=== PATIENT | female | born 1985 | race Caucasian/White ===

== ENCOUNTER 2022-09-06 10:08 | Outpatient (CLI) | payer OTHER | END 2022-09-06 15:16 | disposition home or self-care (01) | LOC: LAB 10:08 | PROVIDERS: ATTEND Obstetrics & Gynecology | DX: Z00.00 Encounter for general adult medical examination without abnormal findings (principal); I10 Essential (primary) hypertension; E03.9 Hypothyroidism, unspecified; E78.00 Pure hypercholesterolemia, unspecified; N39.0 Urinary tract infection, site not specified; Z11.4 Encounter for screening for human immunodeficiency virus [HIV]; Z12.11 Encounter for screening for malignant neoplasm of colon; E55.9 Vitamin D deficiency, unspecified; Z21 Asymptomatic human immunodeficiency virus [HIV] infection status; R79.9 Abnormal finding of blood chemistry, unspecified; R79.89 Other specified abnormal findings of blood chemistry ==

== ENCOUNTER 2022-09-06 10:47 | Outpatient (CLI) | payer OTHER | END 2022-09-06 10:52 | disposition home or self-care (01) | LOC: MAMO-SONO 10:47 | PROVIDERS: ATTEND Obstetrics & Gynecology | DX: N63.0 Unspecified lump in unspecified breast (principal); N64.59 Other signs and symptoms in breast; N64.9 Disorder of breast, unspecified ==

== ENCOUNTER 2024-09-05 11:13 | Outpatient (CLI) | payer OTHER ==
[2024-09-05 12:00] LABS: HEMOGLOBIN 12.9 g/dL (12.0-15.00); MEAN CELL VOLUME 80.8 fL (80.00-100.00); MEAN CORPUSCULAR HEMOGLOBIN 26.7 pg (27.00-32.0); MEAN CORPUSCULAR HGB CONC 33.1 g/dl (32.0-36.0); PLATELET COUNT 205 K/uL (150-450); RED BLOOD COUNT 4.82 M/uL (4.00-6.00); RED CELL DISTRIBUTION WIDTH 15.5 % (11.5-14.5)
[2024-09-05 12:03] LABS: URINE BACTERIA 887.3 uL (0.0-1933); URINE EPITHELIAL CELLS 12.3 uL (0.0-38.8); URINE RBC 9.4 uL (0.0-20.8); URINE WBC 30.8 uL (0.0-23.2)
[2024-09-05 12:06] LABS: URINE APPEARANCE Clear; URINE BILIRRUBIN Negative (NEGATIVE); URINE BLOOD Negative; URINE COLOR Yellow; URINE GLUCOSE Negative (NEGATIVE); URINE KETONE Negative (NEGATIVE); URINE LEUKOCYTE Negative; URINE NITRATE Negative; URINE PROTEIN Negative (NEGATIVE); URINE UROBILINOGEN 0.2 E.U./dl
[2024-09-05 12:46] LABS: ALBUMIN 3.5 gm/dL (3.4-5.0); BILIRUBIN TOTAL 0.79 mg/dL (0.3-1.2); CHOL HDL RATIO 3.4 (0-5.0); CREATININE SERUM 0.75 mg/dL (0.55-1.02); GFR 86.48; GLOBULINA 3.8 G/DL (2.4-3.5); POTASSIUM 4.24 mEq/L (3.5-5.1); TOTAL PROTEIN 7.3 gm/dL (6.4-8.2); TSH 1.65 uIU/mL (0.358-3.74)
[2024-09-05 14:03] LABS: T4 FREE 1.2 NG/ML (0.76-1.46)
== END 2024-09-05 11:15 | disposition home or self-care (01) ==
LOC: LAB 11:13
PROVIDERS: ATTEND Obstetrics & Gynecology
DX: E03.9 Hypothyroidism, unspecified (principal); I10 Essential (primary) hypertension; Z00.00 Encounter for general adult medical examination without abnormal findings; N39.0 Urinary tract infection, site not specified; Z11.4 Encounter for screening for human immunodeficiency virus [HIV]; Z12.11 Encounter for screening for malignant neoplasm of colon; E55.9 Vitamin D deficiency, unspecified; R79.9 Abnormal finding of blood chemistry, unspecified; R79.89 Other specified abnormal findings of blood chemistry

== ENCOUNTER → 2024-09-05 | Outpatient (CLI) | payer OTHER | END | disposition home or self-care (01) | LOC: MAMO-SONO 12:08 | PROVIDERS: ATTEND Obstetrics & Gynecology | DX: N94.0 Mittelschmerz (principal); R10.2 Pelvic and perineal pain; N94.89 Other specified conditions associated with female genital organs and menstrual cycle; N63 Unspecified lump in breast; N64.59 Other signs and symptoms in breast; N64.9 Disorder of breast, unspecified ==

== ENCOUNTER 2024-12-09 20:25 | Emergency (ER) | payer OTHER ==
[~2024-12-09] VITALS: Ht 177.8 cm; Wt 160.6 kg
== END 2024-12-09 22:29 | disposition home or self-care (01) ==
LOC: ER 20:31
DX: K59.01 Slow transit constipation (principal)

== ENCOUNTER 2024-12-17 16:04 | Inpatient (IN) | payer OTHER ==
[~2024-12-17] VITALS: Ht 177.8 cm; Wt 160.6 kg
--- NOTE | 2024-12-17 16:55 | NUR ---
PTE ALERTA Y ORIENTADA X3 VEBALIZA TENER DOLOR ABDOMINAL DESDE HACE 2 SEMANAS SE LE STEVAN S/V Y SE UBICA.
[2024-12-17] MEDS ORDERED: KETOROLAC TROMETHAMINE 60 MG VIAL IM ONE (19:45)
[2024-12-17 19:46] LABS: BASO % 0.3 % (0.1-1.2); EOS # 0.03 (0.04-0.54); EOS % 0.2 % (0.7-7.0); LYMPH # 1.10 (1.18-3.74); LYMPH % 7.6 % (19.3-53.1); MEAN PLATELET VOLUME 10.90 fl (9.4-12.4); MONO # 1.56 (0.24-0.82); MONO % 10.7 % (4.7-12.5); NEUT # 11.78 (1.56-6.13); NEUT % 80.9 % (34.0-71.1); RED CELL DISTRIBUTION WIDTH 15.1 % (11.6-14.4)
--- NOTE | 2024-12-17 19:49 | NUR ---
SE ORIENTA PTE SOBRE TX MEDICO EL CUAL REFIERE ENTENDER.SE LE EXTRAEN MUESTRAS BAJO MEDIDAS ASEPTICAS,SE CANALIZA Y SE ADMINISTRA MEDICAMENTO.SE NOTIFICA CT PENDIENTE Y SE UBICA EN BUTACA EN PASILLO.
[2024-12-17 20:13] LABS: URINE APPEARANCE Cloudy; URINE BILIRRUBIN Small (NEGATIVE); URINE BLOOD Negative; URINE COLOR Dark Yellow; URINE GLUCOSE Negative (NEGATIVE); URINE LEUKOCYTE Small; URINE NITRATE Negative; URINE UROBILINOGEN 2.0 E.U./dl
[2024-12-17 20:17] LABS: URINE BACTERIA 6403.0 uL (0.0-1933); URINE EPITHELIAL CELLS 72.1 uL (0.0-38.8); URINE RBC 14.9 uL (0.0-20.8); URINE WBC 49.8 uL (0.0-23.2)
[2024-12-17 20:22] LABS: ALT/SGPT 58.0 U/L (12-78); AST/SGOT 41.0 U/L (15-37); BILIRUBIN TOTAL 1.17 mg/dL (0.3-1.2); BUN CREA RATIO 7.0 (7.0-25.0); CREATININE SERUM 0.85 mg/dL (0.55-1.02); GFR 74.46; GLOBULINA 5.4 G/DL (2.4-3.5); GLUCOSE FASTING 94.0 mg/dL (65-100); OSMOLALITY SERUM 271.0 MOSM/KG (275-295)
[2024-12-17 20:49] LABS: URINE CAST 0.73 uL (0.0-1.40); URINE KETONE 80 (NEGATIVE); URINE PROTEIN 100 (NEGATIVE)
[2024-12-17] MEDS ORDERED: KETOROLAC TROMETHAMINE 15 MG VIAL IU ONE (23:45)
[2024-12-17] MEDS ORDERED: MORPHINE SULFATE 4 MG/ML CARTRIDGE IV PRN (23:45)
[2024-12-17] MEDS ORDERED: 0.9 % SODIUM CHLORIDE 1,000 ML IV ONE (23:45)
[2024-12-17] MEDS ORDERED: 0.9 % SODIUM CHLORIDE 1,000 ML IV SCH (23:45)
[2024-12-17] MEDS ORDERED: ACETAMINOPHEN 500 MG GEL..CAP PO PRN (23:45)
[2024-12-17] MEDS ORDERED: ONDANSETRON HCL 4 MG in 0.9 % SODIUM CHLORIDE 50 ML IV PRN (23:45)
[2024-12-17] MEDS ORDERED: FAMOTIDINE/PF 20 MG in 0.9 % SODIUM CHLORIDE 8 ML IV PUSH SCH (23:56)
[2024-12-18] MEDS ORDERED: PIPERACILLIN/TAZOBACTAM SODIUM 3.375 GM in DEXTROSE 5 % IN WATER 100 ML IV SCH
[2024-12-18 10:07] VITALS: BP 137/79; O2SAT 99
[2024-12-18 10:32] LABS: INR 1.07
[2024-12-18] MEDS ORDERED: AA 4.25%/CAL/LYTES/DEXT 5% 1,000 ML PERIFERAL SCH (17:00)
[2024-12-18 19:00] VITALS: BP 148/80; O2SAT 98
[2024-12-18 20:48] LABS: CHOL HDL RATIO 4.0 (0-5.0); HDL 29.0 mg/dl (40-60); LDL 77.0 mg/dl (0-130); VLDL 11.0 (0-39)
[2024-12-19 01:23] VITALS: BP 121/77; O2SAT 96
[2024-12-19 06:17] LABS: BASO % 0.2 % (0.1-1.2); EOS # 0.03 (0.04-0.54); EOS % 0.2 % (0.7-7.0); LYMPH # 0.89 (1.18-3.74); LYMPH % 6.4 % (19.3-53.1); MEAN PLATELET VOLUME 12.00 fl (9.4-12.4); MONO # 1.46 (0.24-0.82); MONO % 10.5 % (4.7-12.5); NEUT # 11.46 (1.56-6.13); NEUT % 82.4 % (34.0-71.1); RED CELL DISTRIBUTION WIDTH 15.2 % (11.6-14.4)
[2024-12-19 07:09] LABS: ALT/SGPT 74.0 U/L (12-78); AST/SGOT 53.0 U/L (15-37); BILIRUBIN TOTAL 1.56 mg/dL (0.3-1.2); BUN CREA RATIO 9.0 (7.0-25.0); CREATININE SERUM 0.74 mg/dL (0.55-1.02); GFR 87.37; GLOBULINA 3.9 G/DL (2.4-3.5); GLUCOSE FASTING 97.0 mg/dL (65-100); OSMOLALITY SERUM 274.0 MOSM/KG (275-295)
[2024-12-19 09:27] VITALS: BP 140/76
[2024-12-19 17:46] VITALS: BP 122/87; O2SAT 97
[2024-12-20 02:09] VITALS: BP 115/79; O2SAT 96
[2024-12-20 07:03] LABS: BASO % 0.3 % (0.1-1.2); EOS # 0.19 (0.04-0.54); EOS % 1.6 % (0.7-7.0); LYMPH # 0.76 (1.18-3.74); LYMPH % 6.4 % (19.3-53.1); MEAN PLATELET VOLUME 12.00 fl (9.4-12.4); MONO # 1.32 (0.24-0.82); MONO % 11.0 % (4.7-12.5); NEUT # 9.62 (1.56-6.13); NEUT % 80.4 % (34.0-71.1); RED CELL DISTRIBUTION WIDTH 15.4 % (11.6-14.4)
[2024-12-20 08:00] LABS: ALT/SGPT 106.0 U/L (12-78); AST/SGOT 79.0 U/L (15-37); BILIRUBIN TOTAL 1.67 mg/dL (0.3-1.2); BUN CREA RATIO 9.0 (7.0-25.0); CREATININE SERUM 0.68 mg/dL (0.55-1.02); GFR 96.32; GLOBULINA 4.0 G/DL (2.4-3.5); GLUCOSE FASTING 84.0 mg/dL (65-100); OSMOLALITY SERUM 276.0 MOSM/KG (275-295)
[2024-12-20 10:28] VITALS: BP 116/76; O2SAT 97
[2024-12-20] MEDS ORDERED: DIATRIZOATE MEGLUMINE, SODIUM 30 ML BOTTLE PO NR (13:30)
[2024-12-20 16:58] VITALS: BP 124/78; O2SAT 97
[2024-12-20 17:02] LABS: URINE APPEARANCE Clear; URINE BILIRRUBIN Small (NEGATIVE); URINE BLOOD Negative; URINE COLOR Dark Yellow; URINE GLUCOSE Negative (NEGATIVE); URINE LEUKOCYTE Small; URINE NITRATE Negative; URINE PROTEIN 30 (NEGATIVE); URINE UROBILINOGEN 2.0 E.U./dl
[2024-12-20 17:06] LABS: URINE BACTERIA 143.9 uL (0.0-1933); URINE EPITHELIAL CELLS 34.4 uL (0.0-38.8); URINE RBC 17.4 uL (0.0-20.8); URINE WBC 12.6 uL (0.0-23.2)
[2024-12-20 17:44] LABS: URINE CAST 0.29 uL (0.0-1.40); URINE KETONE 80 (NEGATIVE)
[2024-12-20 17:45] LABS: TYPE CELLS SQUAMOUS; URINE MUCUS SCANT
[2024-12-20] MEDS ORDERED: MORPHINE SULFATE 4 MG/ML CARTRIDGE IV PRN (23:30)
[2024-12-21 02:03] VITALS: BP 128/79; O2SAT 99
[2024-12-21 09:00] VITALS: BP 105/75; O2SAT 99
[2024-12-21 17:30] VITALS: BP 142/85; O2SAT 99
[2024-12-22 02:31] VITALS: BP 114/77; O2SAT 95
[2024-12-22 09:53] VITALS: BP 117/79
[2024-12-22 17:50] VITALS: BP 131/90
[2024-12-23 00:28] VITALS: BP 148/100
[2024-12-23 05:20] VITALS: BP 149/98
[2024-12-23 09:03] VITALS: BP 134/93
[2024-12-23 09:41] LABS: BASO % 0.4 % (0.1-1.2); EOS # 0.22 (0.04-0.54); EOS % 4.4 % (0.7-7.0); LYMPH # 0.71 (1.18-3.74); LYMPH % 14.1 % (19.3-53.1); MEAN PLATELET VOLUME 11.80 fl (9.4-12.4); MONO # 0.51 (0.24-0.82); MONO % 10.1 % (4.7-12.5); NEUT # 3.54 (1.56-6.13); NEUT % 70.4 % (34.0-71.1); RED CELL DISTRIBUTION WIDTH 15.4 % (11.6-14.4)
[2024-12-23 10:10] LABS: ALT/SGPT 143.0 U/L (12-78); AST/SGOT 115.0 U/L (15-37); BILIRUBIN TOTAL 0.75 mg/dL (0.3-1.2); BUN CREA RATIO 12.0 (7.0-25.0); CREATININE SERUM 0.58 mg/dL (0.55-1.02); GFR 115.73; GLOBULINA 4.0 G/DL (2.4-3.5); GLUCOSE FASTING 86.0 mg/dL (65-100); OSMOLALITY SERUM 282.0 MOSM/KG (275-295)
[2024-12-23] MEDS ORDERED: IRON FUM,PS/FOLIC/BCOMP,C NO.9 1 CAP CAPSULE PO SCH (17:03)
[2024-12-23] MEDS ORDERED: SODIUM CHLORIDE 0.45 % 1,000 ML IV SCH (17:15)
[2024-12-23 18:01] VITALS: BP 141/95
[2024-12-24 00:33] VITALS: BP 151/75
[2024-12-24 10:11] VITALS: BP 139/95; O2SAT 97
[2024-12-24 13:03] LABS: BASO % 0.7 % (0.1-1.2); EOS # 0.23 (0.04-0.54); EOS % 4.1 % (0.7-7.0); LYMPH # 0.90 (1.18-3.74); LYMPH % 16.1 % (19.3-53.1); MEAN PLATELET VOLUME 11.70 fl (9.4-12.4); MONO # 0.52 (0.24-0.82); MONO % 9.3 % (4.7-12.5); NEUT # 3.87 (1.56-6.13); NEUT % 69.1 % (34.0-71.1); RED CELL DISTRIBUTION WIDTH 15.4 % (11.6-14.4)
[2024-12-24 13:56] LABS: ALT/SGPT 173.0 U/L (12-78); AST/SGOT 114.0 U/L (15-37); BILIRUBIN TOTAL 0.6 mg/dL (0.3-1.2); BILIRUBIN,CONJUGATED 0.14 mg/dL (0.0-0.2); BUN CREA RATIO 11.0 (7.0-25.0); CHOL HDL RATIO 6.3 (0-5.0); CREATININE SERUM 0.55 mg/dL (0.55-1.02); GFR 123.05; GLOBULINA 4.5 G/DL (2.4-3.5); GLUCOSE FASTING 83.0 mg/dL (65-100); HDL 21.0 mg/dl (40-60); LDL 85.0 mg/dl (0-130); OSMOLALITY SERUM 274.0 MOSM/KG (275-295); VLDL 26.0 (0-39)
[2024-12-24 14:06] LABS: UREA CLEARANCE 72.3 ML/MIN
[2024-12-24 19:00] VITALS: BP 145/97
[2024-12-25] MEDS ORDERED: TRAMADOL HCL 50 MG TABLET PO PRN (00:15)
[2024-12-25 02:28] VITALS: BP 125/87; O2SAT 98
[2024-12-25 08:35] VITALS: BP 134/80; O2SAT 98
[2024-12-25 19:24] VITALS: BP 157/94
[2024-12-26] MEDS ORDERED: ACETAMINOPHEN 500 MG GEL..CAP PO PRN (02:00)
[2024-12-26 02:20] VITALS: BP 139/90; O2SAT 98
[2024-12-26 08:19] VITALS: BP 123/82
[2024-12-26 17:43] VITALS: BP 133/85; O2SAT 96
[2024-12-27 02:47] VITALS: BP 131/84; O2SAT 98
[2024-12-27 03:22] LABS: ALT/SGPT 194.0 U/L (12-78); AST/SGOT 95.0 U/L (15-37); BILIRUBIN TOTAL 0.44 mg/dL (0.3-1.2); BUN CREA RATIO 7.0 (7.0-25.0); CREATININE SERUM 0.67 mg/dL (0.55-1.02); GFR 97.99; GLOBULINA 4.2 G/DL (2.4-3.5); GLUCOSE FASTING 92.0 mg/dL (65-100); OSMOLALITY SERUM 278.0 MOSM/KG (275-295)
[2024-12-27] MEDS ORDERED: DIATRIZOATE MEGLUMINE, SODIUM 30 ML BOTTLE PO NR (08:00)
[2024-12-27 08:43] VITALS: BP 130/77
[2024-12-27 10:57] LABS: BASO % 0.6 % (0.1-1.2); EOS # 0.15 (0.04-0.54); EOS % 3.2 % (0.7-7.0); LYMPH # 0.85 (1.18-3.74); LYMPH % 18.4 % (19.3-53.1); MEAN PLATELET VOLUME 11.70 fl (9.4-12.4); MONO # 0.51 (0.24-0.82); MONO % 11.0 % (4.7-12.5); NEUT # 3.07 (1.56-6.13); NEUT % 66.4 % (34.0-71.1); RED CELL DISTRIBUTION WIDTH 15.2 % (11.6-14.4)
[2024-12-27] MEDS ORDERED: FAMOTIDINE/PF 20 MG/2 ML VIAL ONE (15:29)
[2024-12-27 16:39] VITALS: BP 133/99; O2SAT 99
[2024-12-28 01:19] VITALS: BP 130/85; O2SAT 97
[2024-12-28 01:20] VITALS: BP 130/85; O2SAT 97
[2024-12-28 08:50] VITALS: BP 129/84
[2024-12-28] MEDS ORDERED: METRONIDAZOLE500 MG PO ×2 (15:09)
[2024-12-28] MEDS ORDERED: LEVOFLOXACIN750 MG PO ×2 (15:09)
[2024-12-28] MEDS ORDERED: INTESTINEX680 M1 PO ×2 (15:10)
[2024-12-28] MEDS ORDERED: INTEGRA PLUS C1 EACH PO ×2 (15:10)
[2024-12-28] MEDS ORDERED: TRAM1TAB98 PO ×2 (15:11)
== END 2024-12-28 15:18 | disposition home or self-care (01) | DRG 372 ==
LOC: ER 16:04 → SURG 23:57 → MEDJ 23:57
PROVIDERS: General Practice; Internal Medicine Infectious Disease; Preventive Medicine Public Health & General Preventive Medicine; ADMIT Internal Medicine; ATTEND Internal Medicine
PROC: BW21YZZ Computerized Tomography (CT Scan) of Abdomen and Pelvis using Other Contrast (ICD-10-PCS; principal; 2024-12-17)
PROC: BW21ZZZ Computerized Tomography (CT Scan) of Abdomen and Pelvis (ICD-10-PCS; 2024-12-20)
PROC: BW21YZZ Computerized Tomography (CT Scan) of Abdomen and Pelvis using Other Contrast (ICD-10-PCS; 2024-12-27)
DX: K35.32 Acute appendicitis with perforation, localized peritonitis, and gangrene, without abscess (principal); L02.211 Cutaneous abscess of abdominal wall; N39.0 Urinary tract infection, site not specified; D72.828 Other elevated white blood cell count; E86.0 Dehydration

== ENCOUNTER 2025-01-01 11:44 | Outpatient (CLI) | payer OTHER ==
[~2025-01-01 11:44] MED LIST: INTEGRA PLUS C1 EACH PO; INTESTINEX680 M1 PO; LEVOFLOXACIN750 MG PO; METRONIDAZOLE500 MG PO; TRAM1TAB98 PO
[2025-01-01 12:11] LABS: BASO % 0.5 % (0.1-1.2); EOS # 0.08 (0.04-0.54); EOS % 1.3 % (0.7-7.0); LYMPH # 1.07 (1.18-3.74); LYMPH % 18.0 % (19.3-53.1); MEAN PLATELET VOLUME 10.90 fl (9.4-12.4); MONO # 0.44 (0.24-0.82); MONO % 7.4 % (4.7-12.5); NEUT # 4.31 (1.56-6.13); NEUT % 72.6 % (34.0-71.1); RED CELL DISTRIBUTION WIDTH 16.6 % (11.6-14.4)
[2025-01-01 12:18] LABS: ERYTHROCYTE SEDIMENTATION RATE 41 mm/hr (0-20)
[2025-01-01 13:00] LABS: ALT/SGPT 119.0 U/L (12-78); AST/SGOT 45.0 U/L (15-37); BILIRUBIN TOTAL 0.7 mg/dL (0.3-1.2); BUN CREA RATIO 10.0 (7.0-25.0); CREATININE SERUM 0.81 mg/dL (0.55-1.02); GFR 78.72; GLOBULINA 4.3 G/DL (2.4-3.5); GLUCOSE FASTING 91.0 mg/dL (65-100); OSMOLALITY SERUM 279.0 MOSM/KG (275-295)
== END 2025-01-01 11:47 | disposition home or self-care (01) ==
LOC: LAB 11:44
PROVIDERS: ATTEND Internal Medicine
DX: K35.31 Acute appendicitis with localized peritonitis and gangrene, without perforation (principal); K35.32 Acute appendicitis with perforation, localized peritonitis, and gangrene, without abscess; N18.9 Chronic kidney disease, unspecified

== ENCOUNTER 2025-04-15 10:58 | Outpatient (CLI) | payer OTHER | END 2025-04-15 11:07 | disposition home or self-care (01) | LOC: TOM 10:58 | DX: R35.89 Other polyuria (principal) ==

== ENCOUNTER 2025-05-01 07:00 | Day surgery (SDC) | payer OTHER ==
[2025-04-29 09:47] VITALS: BP 150/90
[2025-04-29 11:40] LABS: URINE APPEARANCE Clear; URINE BILIRRUBIN Negative (NEGATIVE); URINE BLOOD Negative; URINE COLOR Yellow; URINE GLUCOSE Negative (NEGATIVE); URINE LEUKOCYTE Negative; URINE NITRATE Negative; URINE PROTEIN Negative (NEGATIVE); URINE UROBILINOGEN 0.2 E.U./dl
[2025-04-29 11:44] LABS: URINE BACTERIA 493.0 uL (0.0-1933); URINE EPITHELIAL CELLS 17.0 uL (0.0-38.8); URINE RBC 3.6 uL (0.0-20.8); URINE WBC 3.2 uL (0.0-23.2)
[2025-04-29 11:45] LABS: BASO % 0.3 % (0.1-1.2); EOS # 0.08 (0.04-0.54); EOS % 1.3 % (0.7-7.0); LYMPH # 1.00 (1.18-3.74); LYMPH % 16.6 % (19.3-53.1); MEAN PLATELET VOLUME 12.00 fl (9.4-12.4); MONO # 0.45 (0.24-0.82); MONO % 7.5 % (4.7-12.5); NEUT # 4.47 (1.56-6.13); NEUT % 74.1 % (34.0-71.1); RED CELL DISTRIBUTION WIDTH 14.6 % (11.6-14.4)
[2025-04-29 11:46] LABS: URINE CAST 0.14 uL (0.0-1.40); URINE KETONE 40 (NEGATIVE)
[2025-04-29 12:12] LABS: INR 1.04
[2025-04-29 12:20] LABS: ALT/SGPT 25.0 U/L (12-78); AST/SGOT 15.0 U/L (15-37); BILIRUBIN TOTAL 0.88 mg/dL (0.3-1.2); BUN CREA RATIO 10.0 (7.0-25.0); CREATININE SERUM 0.62 mg/dL (0.55-1.02); GFR 107.16; GLOBULINA 3.6 G/DL (2.4-3.5); GLUCOSE FASTING 93.0 mg/dL (65-100); OSMOLALITY SERUM 282.0 MOSM/KG (275-295)
[~2025-05-01] VITALS: Ht 177.8 cm; Wt 141.5 kg
[2025-05-01] MEDS ORDERED: CEFAZOLIN SODIUM 1,000 MG VIAL ONE (07:44)
[2025-05-01] MEDS ORDERED: BUPIVACAINE HCL/MPF 0.5% 30ML VIAL ONE (08:59)
[2025-05-01] MEDS ORDERED: LIDOCAINE HCL 1%/EPINEPHRINE 20ML VIAL IJ ONE (08:59)
[2025-05-01] MEDS ORDERED: SUGAMMADEX SODIUM 200 MG/2 ML VIAL IV ONE ×2 (10:24→10:37)
== END 2025-05-01 13:50 | disposition home or self-care (01) ==
LOC: CIR.AMB 07:00
PROVIDERS: ATTEND Surgery
DX: K35.30 Acute appendicitis with localized peritonitis, without perforation or gangrene (principal)